=== PATIENT | female | born 1985 | race Two or more races ===

== ENCOUNTER 2022-11-06 16:59 | Emergency (ER) | payer MEDICAID ==
[~2022-11-06] VITALS: Ht 165.1 cm; Wt 90.7 kg
[2022-11-06 17:18] VITALS: BP 140/78; TEMP 98.6
[2022-11-06] MEDS ORDERED: IBUPROFEN 600 MG TABLET PO ONE (17:30)
[2022-11-06] MEDS ORDERED: IBUPROFEN 600 MG TABLET ONE (17:49)
--- NOTE | 2022-11-06 18:14 | NUR ---
Dr Montaño verbally gave After Care Instructions. Pt discharged by same is stable condition
== END 2022-11-06 18:14 | disposition home or self-care (01) ==
LOC: ER 17:02
DX: M79.644 Pain in right finger(s) (principal)
CPT/HCPCS: 73130-TC